=== PATIENT | female | born 2000 | race Caucasian/White ===

== ENCOUNTER 2024-05-09 02:33 | Inpatient (IN) ==
[2024-05-09] MEDS ORDERED: LIDOCAINE 1% LOCAL 20 ML VIAL INFIL PRN (04:10)
[2024-05-09] MEDS ORDERED: LACTATED RINGER'S 1,000 ML IV SCH (04:15)
[2024-05-09 04:36] LABS: Hematocrit (blood only) 40.8 % (37.0-47.0); Mean Corpuscular Hemoglobin 26.8 pg (25.0-34.0); Mean Corpuscular Hgb Conc 31.9 g/dL (32.0-36.0); Mean Corpuscular Volume 84.1 fL (80.0-100.0); Platelet Count 270 K/uL (130-400); RDW Coefficient of Variation 15.2 % (11.5-14.5); Red Blood Count 4.85 M/uL (4.20-5.40); White Blood Count 14.52 K/ul (4.8-10.8)
[2024-05-09] MEDS ORDERED: BUTORPHANOL TARTRATE 2 MG/ML VIAL IV PRN (04:36)
--- NOTE | 2024-05-09 06:20 | History & Physical Report ---
Date of Service May 09, 2024 Assessment & Plan (1) Encounter for supervision of normal in multigravida: Plan: 24 yo at 40 3/7 wga presents in labor VSS Fetus cat 1 Labor - arom performed at request GBS neg declines epidural Admission and Anticipated Discharge Date Admission Date: May 09, 2024 History of Present Illness Chief Complaint: Labor Primary Care Provider: JHONY PCP 24 yo at 40 3/7 wga presents w/ ctx increasing in frequency and intensity PNI: FOB with Vic Parkinson White Syndrome, bicuspid valve - fECHO 22-24 weeks-[facility] [place]normal Obesity (BMI between 35-39 @ beginning of ) *Growth US @ 32 wks *Weekly NSTs @ 36wks Rh Negative Rhogam given 02/13/24- MK Hep B 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 G2 current denies hx stis Allergies Allergy/AdvReac Type Severity Reaction Status Date / Time latex Allergy Mild REDDENED Verified 05/05/24 15:18 RASH ON CONTACT Home Medications Medication Instructions Recorded Confirmed Type aspirin 81 mg tablet,delayed 81 mg PO DAILY 09/10/23 05/09/24 History release vit no.95-ferrous 1 tab PO DAILY 09/10/23 05/09/24 History fumarate 28 mg-folic acid 800 mcg tablet () ondansetron HCl 4 mg tablet 4 mg PO Q8H PRN nausea and 10/28/23 05/09/24 Rx vomiting #20 tabs iron,carbonyl 65 mg-vitamin C 125 1 tab PO DAILY 03/04/24 05/09/24 History mg tablet,delayed release (Vitron-C) Patient History Medical History History of PCOS Varicella vaccination Surgical History Hx of tonsillectomy Hx of wisdom tooth extraction Family History Unknown Adopted Social History Smoking Status: Never smoker Second Hand Exposure: No; Do You Dip or Chew Tobacco: No; Tobacco Cessation Education Requested by Patient: No Hx Alcohol Use: Yes Alcohol Intake Frequency: Monthly or Less Hx Substance Use: No Preferred Language: Stateless Communication Ability: Effective Visual Impairment: No Limitations Hearing Ability: Normal 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 Beliefs That Will Affect Care: None marital status: marital status details: Renee Yun (24) [phone] Current Living Situation: Spouse Current Living Situation Comment: renee yun current occupational status: employed current occupation: [employer] [id number] How many Children do You have: 1 Other Information That Helps Us Care for You: No Feels Safe at Home: Yes Safety Concerns: Feels Safe At This Time, Afraid for Self, Afraid for Child/Children and Afraid for Others in Home caffeine: Yes Dental Care, Regularly: Yes Physical Activity Frequency: 1-2 Times per Week Seatbelt Use: always Sunscreen Use: Yes Assistive Devices: None Physical Exam Genitourinary: OB Exam Monitor Tracing: + external FHT monitor used, + external uterine monitor used and + category I SVE by nursing initially 3cm Progressed to 8cm and arom at request Results & Data Vital Signs (Past 12 Hours) Vital Signs Temp Pulse Resp BP Pulse Ox O2 Del Method 05/09/24 05:49 108 H 118/64 05/09/24 05:48 98.2 F 102 H 16 153/91 H 05/09/24 05:03 84 143/77 H 05/09/24 03:29 82 97 05/09/24 03:24 81 96 05/09/24 03:19 83 95 05/09/24 03:14 79 95 05/09/24 03:09 78 94 05/09/24 03:08 88 93 05/09/24 03:04 80 95 05/09/24 03:02 87 94 05/09/24 03:00 97.9 F 16 95 Room Air 05/09/24 03:00 98.2 F 79 16 131/85 98 05/09/24 02:59 83 96 05/09/24 02:58 98.2 F 05/09/24 02:54 80 95 05/09/24 02:53 81 131/85 Coding Level of Care Code None Diagnoses Encounter for supervision of normal in multigravida Z34.80
[2024-05-09] MEDS: OXYTOCIN 10 UNITS/ML 10ML VIAL IM ONE (06:35)
[2024-05-09] MEDS: METHYLERGONOVINE MALEATE 0.2 MG/ML AMP IM STA (06:40)
[2024-05-09] MEDS: miSOPROStoL 200 MCG TAB PR ONE ×2 (06:53→07:45)
[2024-05-09] MEDS: OXYTOCIN 30 UNITS/NSS 30 UNITS/500 ML BAG IV PRN (06:53)
[2024-05-09] MEDS: TRANEXAMIC ACID / 0.7% NACL 1000MG/100ML BAG IV ONE (06:56)
[2024-05-09] MEDS ORDERED: TRANEXAMIC ACID 100 MG/ML 10 ML VIAL IV ONE (07:13)
[2024-05-09] MEDS ORDERED: HYDROCORTISONE ACETATE 25 MG SUPP PR PRN (07:28)
[2024-05-09] MEDS ORDERED: bisacodyL 10 MG SUPP PR PRN (07:28)
[2024-05-09] MEDS ORDERED: OXYTOCIN 30 UNITS/NSS 30 UNITS/500 ML BAG IV PRN (07:28)
--- NOTE | 2024-05-09 07:32 | Delivery Summary ---
Vaginal Delivery Summary Date of Service May 09, 2024 Vaginal Delivery Summary [facility] PREOPERATIVE DIAGNOSIS: 1. Single intrauterine at 40 3/7 wga 2. Labor 3. Rh neg POSTOPERATIVE DIAGNOSIS: 1. Single intrauterine at 40 3/7 wga 2. Labor 3. Rh neg 4. Delivered PROCEDURE: 1. Normal spontaneous vaginal delivery. SURGEON: Heike Armas MD ANESTHESIA: None QUANTITATIVE BLOOD LOSS: 1000 mL FLUIDS: Continuous LR. URINE OUTPUT: None. COMPLICATIONS: None. CONDITION: Stable. INDICATIONS: 24 yo at 40 3/7 wga presented in labor at 3cm. She rapidly progressed to 8cm. She underwent arom and then quickly progressed to complete and desired to push FINDINGS: A viable male infant, weight pending with Apgars of 8 and 9 at 1 and 5 minutes respectively. SPECIMEN: Cord blood OPERATIVE REPORT: The patient progressed to 10 cm, 100% effaced and +2 station, pushed over intact perineum with anesthesia to deliver a viable male infant, weight and Apgars as above. Head of delivered in JOE position. No nuchal cord was present. Body and shoulders were delivered without difficulty. was delivered to maternal abdomen and nursing staff. Delayed cord clamping was performed for 60 seconds. Cord was clamped and cut. Cord blood was obtained. Placenta delivered spontaneously intact with 3-vessel cord. IM oxytocin due to fluid shortage and fundal massage were given however lower segment atony was noted. Manual clot sweep, methergine and cytotec were given. Bleeding improved but there was still persistent bleeding so TXA was given. Good hemostasis was then noted. Vagina, cervix, perineum, and placenta were inspected. A hemostatic periclitoral abrasion was not needed to be repaired. Sponge and needle counts correct x2. No sponges were left behind. Mother and stable in immediate period. [facility] [place] Vaginal Delivery Charge Vaginal Delivery Codes: 57215 global code for the antepartum, delivery, and post- Delivery Type Details: [facility]
[2024-05-09] MEDS: METHYLERGONOVINE MALEATE 0.2 MG/ML AMP IM ONE (07:44)
[2024-05-09] MEDS: DIPHTHER/TETAN/PERTUS Vaccine (Tdap, Adol/Adult) 0.5mL IM ONE (07:48)
[2024-05-09] MEDS: ACETAMINOPHEN 325 MG TAB PO PRN (07:54)
[2024-05-09] MEDS: IBUPROFEN 600 MG TAB PO PRN (07:54)
[2024-05-09] MEDS: FERROUS SULFATE 325 MG TAB PO SCH (08:10)
[2024-05-09] MEDS: ceFAZolin 2000MG 2,000 MG/15 ML SYR IV SCH (08:10)
[2024-05-09] MEDS: DOCUSATE SODIUM 100 MG CAP PO SCH (08:10)
[2024-05-09] MEDS: PRENATAL VITAMIN 1 TAB PO SCH ×2 (08:10→20:32)
[2024-05-09] MEDS ORDERED: SODIUM CHLORIDE 0.9% 100 ML IV PRN (09:30)
[2024-05-09] MEDS ORDERED: SODIUM CHLORIDE 0.9% 50 ML IV PRN (09:30)
[2024-05-09] MEDS: BENZOCAINE 20% SPRY 85 APPLN/85 GM CAN EXT PRN (12:36)
[2024-05-10 02:55] VITALS: TEMP 97.9
--- NOTE | 2024-05-10 05:48 | Obstetrical Progress Note ---
Date of Service <Thiago Soler MD - Last Filed: 05/10/24 06:37> May 10, 2024 Assessment & Plan <Thiago Soler MD - Last Filed: 05/10/24 06:37> (1) care and examination: PPD#1 s/p term : Stable. Rh-, gbs-, ri Continue routine care, continue OOB and ambulation, diet as tolerated DC later today <Heike Armas MD - Last Filed: 05/10/24 06:55> (1) care and examination: Subjective <Thiago Soler MD - Last Filed: 05/10/24 06:37> Emmy is a 24 y/o female who is PPD#1 following at term. Reports minimal pain, voiding normally, tolerating meals Has been ambulating normally, no dizziness or weakness Having appropriate lochia Planning for exclusive . Constitutional: no fever, no chills or no sweats Respiratory: no dyspnea Cardiovascular: no chest pain, no palpitations or no calf pain Breast: no breast pain Gastrointestinal: no nausea or no vomiting Genitourinary (female): no dysuria Neurologic: no headache(s) no changes in vision, no headaches Physical Exam <Thiago Soler MD - Last Filed: 05/10/24 06:37> General: Alert, oriented. No acute distress. Cardiac: Regular rate and rhythm, no murmurs, rubs, or gallops. Respiratory: Clear to auscultation bilaterally. No increased work of breathing. Symmetrical chest rise. No respiratory distress. Abdomen: Soft, nontender, nondistended. Bowel sounds present. Uterus: Uterine fundus firm, nontender Lower extremities: No lower extremity edema or swelling. No deep calf pain. Results & Data <Thiago Soler MD - Last Filed: 05/10/24 06:37> Vital Signs (Past 12 Hours) Vital Signs Temp Pulse Pulse Resp BP BP Pulse Ox 05/10/24 02:35 36.6 C 79 18 96/67 L 97 05/09/24 23:20 36.8 C 82 18 109/65 96 05/09/24 18:54 37.1 C 86 16 110/75 94 O2 Del Method 05/10/24 02:35 Room Air 05/09/24 23:20 Room Air 05/09/24 18:54 Room Air Laboratory Results 05/10/24 05:38 Supervising Physician <Heike Armas MD - Last Filed: 05/10/24 06:55> Co-Signing Physician Notes Resident Physician Supervision Note: I interviewed and examined the patient. Discussed with Dr. Soler and agree with findings and plan as documented in the note. Any exceptions or clarifications are listed here: PP1 s/p c/b PPH, doing well. VSS, exam benign. CBC stable. Desires dc, ok to do so Documented By: Heike Armas MD Resident Activity Tracking <Thiago Soler MD - Last Filed: 05/10/24 06:37> Resident Involvement: Resident Care Provided Care Provided: Adult Hospital Medicine and OB Delivery
[2024-05-10 06:12] LABS: Hematocrit (blood only) 31.7 % (37.0-47.0); Hemoglobin 10.2 g/dl (12.0-16.0); Mean Corpuscular Hemoglobin 27.6 pg (25.0-34.0); Mean Corpuscular Hgb Conc 32.2 g/dL (32.0-36.0); Mean Corpuscular Volume 85.9 fL (80.0-100.0); Mean Platelet Volume 10.3 fL (9.4-12.4); Platelet Count 213 K/uL (130-400); RDW Coefficient of Variation 15.2 % (11.5-14.5); RDW Standard Deviation 46.8 fL (36.4-46.3); Red Blood Count 3.69 M/uL (4.20-5.40); White Blood Count 12.06 K/ul (4.8-10.8)
[2024-05-10 07:32] VITALS: RESP 16; O2SAT 96
[2024-05-10 09:32] VITALS: BP 96/67; PULSE 79
[2024-05-10] MEDS ORDERED: bisacodyL 5 MG TABEC PO SCH (20:00)
== END 2024-05-10 11:10 | disposition home or self-care (01) | DRG 807 ==
LOC: OPB 02:33 → 4S1 02:36 → 4E2 09:15